=== PATIENT | female | born 1990 | race Caucasian/White ===

== ENCOUNTER 2018-09-13 05:48 | Day surgery (SDC) | payer OTHER ==
[~2018-09-13] VITALS: Ht 165.1 cm; Wt 67.0 kg
[2018-09-13] VITALS (15 sets, daily range): BP systolic 92–120; BP diastolic 54–84; PULSE 68–101; RESP 10–37; Ht 165.1 cm; Wt 67.0 kg
[2018-09-13] MEDS ORDERED: SOD CHLORIDE 0.9% 1,000 ML IV SCH (06:00)
[2018-09-13] MEDS ORDERED: CEFAZOLIN 2 GM/50 ML (PMX) 50 ML IVPB ONE (06:00)
[2018-09-13] MEDS ORDERED: BUPIVACAINE 0.5%/EPI (SDV) 30 ML INJ ONE (06:52)
[2018-09-13] MEDS ORDERED: POLYMYXIN/BACITRACIN 1L IRRIG ONE (06:52)
[2018-09-13] MEDS ORDERED: THROMBIN 5000 UNIT VIAL ONE (06:52)
[2018-09-13] MEDS ORDERED: CYCL10TA7 PO (06:58)
[2018-09-13] MEDS ORDERED: ACET-141 PO (06:59)
[2018-09-13] MEDS ORDERED: GABA300C16 PO (06:59)
[2018-09-13] MEDS ORDERED: PROPOFOL 200 MG INJ ONE (07:00)
[2018-09-13] MEDS ORDERED: DESFLURANE 15 MIN ONE (07:00)
--- NOTE | 2018-09-13 07:15 | HPN ---
Date/Time of Note Date/Time of Note DATE: 09/13/18 TIME: 07:15 Interval H&P Admission Note Pt. seen H&P reviewed: No system changes RAJAN SALAZAR MD Sep 13, 2018 07:15
--- NOTE | 2018-09-13 07:33 | PREAC ---
Date/Time of Note Date/Time of Note DATE: 09/13/18 TIME: 07:32 Anesthesia Eval and Record Evaluation Time Pre-Procedure Interview DATE: 09/13/18 TIME: 07:32 Age 28 Sex female NPO: 8 hrs Preoperative diagnosis L5L5 miscrodiscectomy Planned procedure L4L5 microdiscectomy Past Medical History Past Medical History: None Surgery & Anesthesia Issues No known issue Meds Anticoagulation: No Beta Klaus within 24 hr: No Reason Beta Klaus not given: Pt. not on B-Klaus Reported Medications Acetaminophen* (Acetaminophen*) 500 MG Extra Strength Tablet, 1000 MG PO Q6H PRN for PAIN AND OR ELEVATED TEMP, TAB 09/13/18 Gabapentin* (Gabapentin*) 300 Mg Capsule, 300 MG PO TID, #90 CAP 09/13/18 Cyclobenzaprine Hcl* (Cyclobenzaprine Hcl*) 10 Mg Tablet, 10 MG PO TID, #90 TAB 09/13/18 Current Medications Sodium Chloride 1,000 ml @ 75 mls/hr [id number] IV ; Start 09/13/18 at 06:00; Stop 09/13/18 at 19:19 Meds reviewed: Yes Allergies Coded Allergies: No Known Allergy (Unverified , 09/13/18) Allergies Reviewed: Yes Labs/Studies Labs Reviewed: Reviewed by anesthesiologist test: Negative Pre-procedure Exam Last vitals Vital Signs Date Temp Pulse Resp B/P (MAP) Pulse Ox O2 O2 Flow FiO2 Time Delivery Rate 09/13/18 97.9 82 18 105/71 97 Room Air 06:40 (82) Airway: Adequate mouth opening, Adequate thyromental dist Mallampati: Mallampati I Teeth: Normal Lung: Normal Heart: Normal ASA Physical Status ASA physical status: 2 Emergency: None Pre-operative Attestations Prior to commencing anesthesia and surgery, the patient was re-evaluated, there was verification of: *The patient's identity *The results of appropriate recent lab work and preoperative vital signs *The above evaluation not changing prior to induction *Anesthetic plan, risk benefits, alternative and complications discussed with patient/family; questions answered; patient/family understands, accepts and wishes to proceed. VALERIE VASQUEZ DO Sep 13, 2018 07:33
[2018-09-13] MEDS ORDERED: ROCURONIUM 50 MG INJ ONE (07:39)
[2018-09-13] MEDS ORDERED: LIDOCAINE 1% (MDV) 20 ML INJ ONE (07:39)
[2018-09-13] MEDS ORDERED: SUCCINYLCHOLINE CHLORIDE 100 MG/5 ML SYG IV ONE (07:39)
[2018-09-13] MEDS ORDERED: MIDAZOLAM 1 MG/ML 2 ML INJ ONE (07:39)
[2018-09-13] MEDS ORDERED: HYDROmorphONE 1 MG/5 ML IV SYRINGE IV PRN (08:00)
[2018-09-13] MEDS ORDERED: DEXAMETHASONE 4 MG/ML 5 ML INJ ONE (08:07)
[2018-09-13] MEDS ORDERED: ONDANSETRON 4 MG INJ ONE (08:07)
[2018-09-13] MEDS ORDERED: CEFAZOLIN 1 GM INJ ONE (08:07)
[2018-09-13] MEDS ORDERED: HEMOSTATIC MATRIX SYG ZFS ONE ×2 (08:19→10:25)
[2018-09-13] MEDS ORDERED: BETAMET NA PHOS/AC(6 MG/ML) 5ML INJ ONE (10:05)
[2018-09-13] MEDS ORDERED: GELATIN SIZE 100 SPONGE ONE (10:21)
--- NOTE | 2018-09-13 10:52 | OPR ---
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 Revision Right sided L4-5 hemilaminectomy, medial facetectomy and foraminotomy 2. Revision Right L4-L5 microdiscectomy SURGEON: Rajan Salazar MD MAIL CLERK: Zackary Nascimenot MD ANESTHESIA: General endotracheal ESTIMATED BLOOD LOSS: 25 mL SURGICAL INDICATION: The patient is a 28 year-old female who presents with a history of right lower extremity pain and weakness. She has a past medical history significant for a right sided L4-5 HNP w/ radiculopathy and underwent a Right sided microdiskectomy several years ago. Shee was found to have a recurrent disc herniation which correlated well with her symptoms and failed to improve with a conservative course of treatment. The patient had failed conservative treatment. Risks, benefits, and alternatives to microdiscectomy were explained to the patient and they wished to proceed. Risks explained included but were not exclusive of bleeding, infection, cauda equina syndrome, nerve injury, dural tear, iatrogenic instability, recurrent disc herniation, fracture, vascular injury, bowel injury, stroke, heart attack and pulmonary embolism. DESCRIPTION OF TECHNIQUE: The patient was identified in the preoperative area a nd taken to the operating room. Rapid induction of general endotracheal anesthesia was performed. The patient was given 2 g of cefazolin for prophylaxis. The patient was then placed in the prone position on the Stuart frame on a Agus flat top table with all prominences well padded. The back was prepped and draped in the usual sterile manner. Using a spinal needle and intraoperative fluoroscopy, the appropriate level was clearly identified (L4- L5). The skin was injected using 0.25% Marcaine with epinephrine. Longitudinal midline incision was then created using a 10 blade. Further dissection through soft tissue was performed using electrocautery down to the spinous processes. The dissection was taken down the right side of the lamina and over the facet joint capsule. A self-retaining retractor was applied. Again, intraoperative fluoroscopy confirmed the appropriate level (L4-5). The microscope was brought into use for microdissection. This case is was a revision case so an additional 45 minutes was taken for exposure and dissection due to adherent scar tissue at the prior surgical site. A series of curretes were used to identify the prior laminotomy site and resect the adherent scar tissue to the dura and traversing nerve root at the right L4-5 level. A small portion of the caudal aspect of the cephalad L4 lamina was resected using a high-speed bur. A series of kerrisons were used to perform a revision dona-lamencotomy and partial medial facetectomy at L4-5 on the right. The dura and traversing nerve root were both directly visualized. These were retracted gently in a medial direction. Immediately, the extruded disc fragment was noted. The pseudo anulus was incised using an 11 blade. Several loose fragments of disk were removed. These were removed back to a stable portion of the disk. The disk space was further pressurized using a using normal saline through a syringe to ensure that no loose fragments remained behind. Palpation with a ball-tip probe did not reveal any further stenosis. The traversing L5 nerve root and exiting L4 nereve root werer noted to be significantly decompressed. Meticulous attention was paid towards hemostasis using FloSeal as well as Gelfoam and thrombin. Care was taken to remove all FloSeal and Gelfoam prior to wound closure. The fascia was then closed using 1 Vicryl in an interrupted fashion. Subcutaneous tissue was closed using 2-0 Vicryl in an interrupted fashion. The skin was closed using a running 4-0 Monocryl stitch. The wound was dressed using Dermabond and a 4x4 sterile gauze. The patient was returned to the supine position. He was extubated immediately postoperatively and taken to the recovery room in stable condition. 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 Revision Right sided L4-5 hemilaminectomy, medial facetectomy and foraminotomy 2. Revision Right L4-L5 microdiscectomy Surgeon see signature line Lead Software Development Engineer Zackary Nascimento MD Anesthesia Type: general Estimated Blood Loss: 10 - 50 ml's Transfusion none Specimen Right sided L4-5 disk Grafts/Implants none Complications none Pt Condition Post Procedure: stable Disposition: PACU Procedure Description DESCRIPTION OF TECHNIQUE: The patient was identified in the preoperative area and taken to the operating room. Rapid induction of general endotracheal anesthesia was performed. The patient was given 2 g of cefazolin for prophylaxis . The patient was then placed in the prone position on the Stuart frame on a Agus flat top table with all prominences well padded. The back was prepped and draped in the usual sterile manner. Using a spinal needle and intraoperative fluoroscopy, the appropriate level was clearly identified (L4-L5). The skin was injected using 0.25% Marcaine with epinephrine. Longitudinal midline incision was then created using a 10 blade. Further dissection through soft tissue was performed using electrocautery down to the spinous processes. The dissection was taken down the right side of the lamina and over the facet joint capsule. A self-retaining retractor was applied. Again, intraoperative fluoroscopy confirmed the appropriate level (L4-5). The microscope was brought into use for microdissection. This case is was a revision case so an additional 45 minutes was taken for exposure and dissection due to adherent scar tissue at the prior surgical site. A series of curretes were used to identify the prior laminotomy site and resect the adherent scar tissue to the dura and traversing nerve root at the right L4-5 level. A small portion of the caudal aspect of the cephalad L4 lamina was resected using a high-speed bur. A series of kerrisons were used to perform a revision dona-lamencotomy and partial medial facetectomy at L4-5 on the right. The dura and traversing nerve root were both directly visualized. These were retracted gently in a medial direction. Immediately, the extruded disc fragment was noted. The pseudo anulus was incised using an 11 blade. Several loose fragments of disk were removed. These were removed back to a stable portion of the disk. The disk space was further pressurized using a using normal saline through a syringe to ensure that no loose fragments remained behind. Palpation with a ball-tip probe did not reveal any further stenosis. The traversing L5 nerve root and exiting L4 nereve root werer noted to be significantly decompressed. Meticulous attention was paid towards hemostasis using FloSeal as well as Gelfoam and thrombin. Care was taken to remove all FloSeal and Gelfoam prior to wound closure. The fascia was then closed using 1 Vicryl in an interrupted fashion. Subcutaneous tissue was closed using 2-0 Vicryl in an interrupted fashion. The skin was closed using a running 4-0 Monocryl stitch. The wound was dressed using Dermabond and a 4x4 sterile gauze. The patient was returned to the supine position. He was extubated immediately postoperatively and taken to the recovery room in stable condition. RAJAN SALAZAR MD Sep 13, 2018 10:52
--- NOTE | 2018-09-13 10:56 | PDOCDIS ---
Discharge Instructions CONDITION [id number] Patient Condition: [id number] Good HOME CARE INSTRUCTIONS: [id number] Diet Instructions: [id number] Regular ACTIVITY: [id number] Activity Restrictions: [id number] Avoid heavy lifting [id number] Bathing Restrictions: [id number] Shower FOLLOW UP/APPOINTMENTS Follow-up Plan Follow-up with Dr. Salazar in 2 weeks RAJAN SALAZAR MD Sep 13, 2018 10:56
[2018-09-13] MEDS ORDERED: PROCHLORPERAZINE 10 MG TAB PO PRN (11:00)
[2018-09-13] MEDS ORDERED: ACETAMINOPHEN 325 MG TAB PO PRN (11:00)
[2018-09-13] MEDS ORDERED: ONDANSETRON 4 MG INJ IV PRN (11:00)
[2018-09-13] MEDS ORDERED: HYDROmorphONE 0.5 MG/0.5 ML SYG IV PRN (11:00)
[2018-09-13] MEDS ORDERED: NALOXONE (0.4 MG/ML) INJ IV PRN (11:00)
[2018-09-13] MEDS ORDERED: OXYCODONE/ACETAMINOPHEN (5/325) TAB PO PRN (11:00)
[2018-09-13] MEDS ORDERED: AL HYDROX/MG HYDROX/SIMETH 30 ML CUP PO PRN (11:00)
[2018-09-13] MEDS ORDERED: NACL 0.9% 3 ML SYG IV SCH (11:00)
--- NOTE | 2018-09-13 11:04 | PAC ---
Date/Time of Note Date/Time of Note DATE: 09/13/18 TIME: 11:03 Post-Anesthesia Notes Post-Anesthesia Note Last documented vital signs Vital Signs Date Temp Pulse Resp B/P (MAP) Pulse Ox O2 O2 Flow FiO2 Time Delivery Rate 09/13/18 98 95 20 122/65 97 Room Air 1103 Activity: WNL Respiratory function: WNL Cardiovascular function: WNL Mental status: Baseline Pain reasonably controlled: Yes Hydration appropriate: Yes Nausea/Vomiting absent: Yes VALERIE VASQUEZ DO Sep 13, 2018 11:03
[2018-09-13] MEDS: HYDROmorphONE 1 MG/5 ML IV SYRINGE IV PRN ×4 (11:11→11:38)
[2018-09-13] MEDS ORDERED: MEPERIDINE 25 MG INJ ONE (11:17)
[2018-09-13] MEDS ORDERED: MEPERIDINE 25 MG INJ IV ONE (11:30)
== END 2018-09-13 13:10 | disposition home or self-care (01) ==
LOC: SDS 05:48
PROVIDERS: ATTEND Orthopaedic Surgery
DX: M51.16 Intervertebral disc disorders with radiculopathy, lumbar region (principal)
CPT/HCPCS: 63030; 72100; 88304; 97161; J0690; J0702; J1100; J1170; J2175; J2250; J2405; J3010; Z7512; Z7610